=== PATIENT | male | born 1965 | race Caucasian/White ===

== ENCOUNTER 2020-07-09 15:25 | Outpatient (CLI) | payer BC, SELFPAY ==
--- NOTE | ~2020-07-09 | XR_ITS ---
XR lumbar spine min 4V 07/09/2020 16:39 Indication: Back pain Procedure: 5 views of the lumbar spine Comparison: No prior studies for comparison. Findings: There is disc narrowing at all lumbar levels. There is moderate facet hypertrophy at L3-4, L4-5 and L5-S1. There is grade 1 degenerative spondylolisthesis at L4-5. No fracture or traumatic no alteration of alignment with flexion/extension views. Impression: 1: Moderate lumbar spondylosis. Reviewed, dictated and finalized at location A. Impression: 1: Moderate lumbar spondylosis.
== END 2020-07-09 15:26 ==
DX: M47.896 Other spondylosis, lumbar region (principal)
CPT/HCPCS: 72110

== ENCOUNTER 2020-08-25 06:58 | Outpatient (CLI) | payer BC, SELFPAY ==
--- NOTE | ~2020-08-25 | MR_ITS ---
EXAMINATION: MR lumbar spine wo con DATE: 08/25/2020 08:00 INDICATION: Left-sided sciatica. TECHNIQUE: Magnetic resonance imaging (MRI) of the lumbar spine was performed without intravenous con trast. Sequences included sagittal T2-weighted FSE, sagittal T2-weighted FS FSE, sagittal T1-weighted FSE, and axial T2-weighted FSE. COMPARISON: Lumbar spine radiograph 07/09/2020 FINDINGS: There is 4 degrees dextrocurvature of thoracolumbar spine. There is 3 mm retrolisthesis of L2 on L3 and L3 on L4, 4 mm anterolisthesis of L4 on L5, and 3 mm retrolisthesis of L5 on S1. Vertebr al body heights are normal. There is mildly decreased disc height at L1-L2 and L2-L3, moderately decr eased disc height at L3-L4, mildly decreased disc height at L4-L5, and severely decreased disc height at L5-S1. The distal spinal cord signal intensity is normal. The conus medullaris is at L1. Epidural lipomatosis is noted. The following disc levels are specifically discussed: L1-L2: The disc is bulging and has an annular fissure. There is mild bilateral facet joint osteoarthr itis. There is mild bilateral neural foraminal stenosis. There is mild central canal stenosis. L2-L3: The disc is bulging with superimposed right central extrusion. There is moderate bilateral fac et joint osteoarthritis. There is mild bilateral neural foraminal stenosis. There is mild central can al stenosis. L3-L4: The disc is bulging and has an annular fissure. There is severe bilateral facet joint osteoart hritis. There is moderate bilateral neural foraminal stenosis. There is moderate central canal stenos is. L4-L5: The disc is bulging. There is severe bilateral facet joint osteoarthritis. There is moderate b ilateral neural foraminal stenosis. There is mild central canal stenosis. L5-S1: The disc is bulging and has an annular fissure. There is severe bilateral facet joint osteoart hritis. There is moderate bilateral neural foraminal stenosis. There is mild central canal stenosis. IMPRESSION: 1. Severe lumbar spondylosis. Reviewed, dictated and finalized at location A.
== END 2020-08-25 06:59 | disposition home or self-care (01) ==
LOC: ANHIMG 07:13
PROVIDERS: PCP Internal Medicine
DX: M54.32 Sciatica, left side (principal); M47.816 Spondylosis without myelopathy or radiculopathy, lumbar region
CPT/HCPCS: 72148

== ENCOUNTER 2024-12-22 09:42 | Outpatient (CLI) | payer OTHER, SELFPAY ==
--- NOTE | ~2024-12-22 | MR_ITS ---
EXAMINATION: MR lumbar spine wo con DATE: 12/22/2024 10:35 INDICATION: Dorsalgia, unspecified. TECHNIQUE: Magnetic resonance imaging (MRI) of the lumbar spine was performed without intravenous con trast. Sequences included sagittal T2-weighted FSE, sagittal T2-weighted FS FSE, sagittal T1-weighted FSE, and axial T2-weighted FSE. COMPARISON: Lumbar spine MRI 08/25/2020 FINDINGS: There is 3 mm retrolisthesis of L1 on L2, L2 on L3, and L3 on L4 and 5 mm anterolisthesis o f L4 on L5. There is mild chronic anterior wedging of T12 and L1 vertebral bodies. There is moderatel y decreased disc height from L1-L2 through L4-L5 and severely decreased disc height at L5-S1. Epidura l lipomatosis is noted. The distal spinal cord signal intensity is normal. The conus medullaris is at L1. The following disc levels are specifically discussed: L1-L2: The disc is bulging. There is mild right and moderate left facet joint osteoarthritis. There i s mild bilateral neural foraminal stenosis. There is mild central canal stenosis. L2-L3: The disc is bulging and has an annular fissure. There is severe bilateral facet joint osteoart hritis. There is mild bilateral neural foraminal stenosis. There is mild central canal stenosis. L3-L4: The disc is bulging and has an annular fissure. There is moderate right and severe left facet joint osteoarthritis. There is moderate bilateral neural foraminal stenosis. There is mild central ca nal stenosis. L4-L5: The disc does not extend beyond the endplate margin. There is severe bilateral facet joint ost eoarthritis. There is moderate right and mild left neural foraminal stenosis. There is mild central c anal stenosis. L5-S1: The disc is bulging and has an annular fissure. There is severe bilateral facet joint osteoart hritis. There is moderate bilateral neural foraminal stenosis. There is mild central canal stenosis. IMPRESSION: 1. Severe lumbar spondylosis, stable from 08/25/2020. Reviewed, dictated and finalized at location A. [facility]
--- OUTSIDE RECORDS SUMMARY | 2024-12-22 10:23 | XMS_ITS | Continuity of Care Document ---
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 It does not include entries that were removed or entered in error. Problem Status Onset Date Problem Type Date of Resolution Comments Source tooth pain Active Condition DoD visit for: ears / hearing exam Active Condition DoD visit for: services physical Inactive Condition DoD Patient Counseling: Inactive Condition D oD hyperlipidemia Active Condition Alexey murphyine hyperlipidemia ; pt will moderate diet, increase aerobic activity. He has quit smoking in past month. Pt will follow up in 3 months. DoD Immunizations Combined list of available immunizations from the Department of Defense and Veterans Affairs facilities. Immunization Series Date Given Administered By Site Reaction Lot Number CVX Code Drug Incident Response Engineer Status Comments Source hepatitis B vaccine, adult dosage 2 2009 [id number] Unknown (UNK) complet ed hepatitis B vaccine, adult dosage DoD hepatitis A vaccine, adult dosage 2 2009 [id number] Unknown (UNK) complet ed hepatitis A vaccine, adult dosage DoD influenza virus vaccine, split virus (incl. purified surface antigen)-reti red CODE 1 2008 [id number] 15 Unknown (UNK) complet ed influenza virus vaccine, split virus (incl. purified surface antigen)- retired CODE DoD hepatitis B vaccine, adult dosage 1 2007 [id number] 43 Unknown (UNK) comple t ed hepatitis B vaccine, adult dosage DoD hepatitis A vaccine, adult dosage 1 2007 [id number] 52 Unknown (UNK) comple t ed hepatitis A vaccine, adult dosage DoD influenza virus vaccine, live, attenuated, for intranasal use 1 2006 [id number] [email or web address] (MED) complet ed influenza virus vaccine, live, attenuate d, for intranasa l use DoD measles, mumps and rubella virus vaccine 1 2006 [id number] 03 Unknown (UNK) Not Given measles, mumps and rubella virus vaccine DoD tetanus and diphtheria toxoids, adsorbed, preservative free, for adult use (2 Lf of tetanus toxoid and 2 Lf of diphtheria toxoid) 1 2006 [id number] [employer] ([facility]) complet ed tetanus and diphtheri a toxoids, adsorbed, preservat joselin free, for adult use (2 Lf of tetanus toxoid and 2 Lf of diphtheri a toxoid) DoD poliovirus vaccine, inactivated 1 2006 [id number] [employer] (B) complet ed polioviru s vaccine, inactivat ed DoD influenza virus vaccine, split virus (incl. purified surface antigen)-reti red CODE 1 2006 [id number] 15 Unknown (UNK) comple t ed influenza virus vaccine, split virus (incl. purified surface antigen)- retired CODE DoD varicella virus vaccine 1 2006 [id number] 21 Unknown (UNK) Not Given varicella virus vaccine DoD meningococcal polysaccharid e (groups A, C, Y and W-135) diphtheria toxoid conjugate vaccine (MCV4P) 1 2006 [id number] 114 Unknown (UNK) comple t ed meningoco ccal polysacch aride (groups A, C, Y and W-135) diphtheri a toxoid conjugate vaccine (MCV4P) DoD Encounters Combined list of: 1) Encounters from Department of Veterans Affairs facilities going backup to the last 18 months, not all VA inpatient encounters are included; 2) Encounters from the Department of Defense facilities going backup to 280 months. Location Location Details Encounter Type Encounter Number Reason For Visit Attending Provider ADM Date DC Date Status Disposition Source [facility] [place] [place]) OUTPATIENT [id number] Profile KEVYN VILA 02/14 Released w/o Limitations [facility] [place] [place] [place] [place] [place] [facility]) OUTPATIENT [id number] [facility] RICKEY OLVERA 02/18 Released w/o Limitations [facility] [place] [place] [place] [facility] [place]) TELE CONSULT [phone] on-call PEGGY Bah 04/[address] [facility] [place]) Procedures Combined list of: 1) Procedures from Department of Veterans Affairs facilities going back up to thelast 18 months, not all VA non-surgical procedures are included; 2) All procedures from the Department of Defense facilities. Procedure Procedure Type Code Date Perfomer Comments Sour e PATIENT EDUCATION, NOT OTHERWISE CLASSIFIED, NON-PHYSICIAN PROVIDER, GROUP, PER SESSION 02/18/2007 [facility] INFLUENZA VIRUS VACCINE, TRIVALENT (IIV3), SPLIT VIRUS, 0.5 ML DOSAGE, FOR INTRAMUSCULAR USE 02/14/2007 [facility] SCREENING TEST OF VISUAL ACUITY, QUANTITATIVE, BILATERAL 02/13/2007 [facility] Ear Protector Attenuation Measurements Ear Protector Attenuation Measurements [id number] 02/18/2007 [facility] Audiometry Group Testing Audiometry Group Testing [id number] 02/18/2007 AYAZ LOPEZ [facility] Patient education, not otherwise cla ified, non-physician provider, group, per se ion 02/18/2007 AYAZ LOPEZ Do[facility] Social History Combined list of available smoking, tobacco, and other social history from Department of Defense and Veterans Affairs facilities. Social History Type Response Date Comment Sour e This section is an empty social history section. [facility]D
--- OUTSIDE RECORDS SUMMARY | 2024-12-22 10:23 | XMS_ITS | Data Portability ---
Author Organization [facility], Main Office Address [address] [place] [address] Assessment No assessment recorded. Plan of Treatment Reminders Order Date Submit Date Provider Last Modified By Organization Details Last Modified Time Details Appointments None recorded. Lab CMP, serum or plasma [address] (Lab), [address] [place], [address], 4 08:51:46 lipid panel, serum [address] (Lab), [address] [place], [address], 4 08:51:46 TSH, serum or plasma [address] (Lab), [address] [place], [address], 4 08:51:46 urinalysis, complete [address] (Lab), [address] [place], [address], 4 08:51:46 PSA, total, serum or plasma [address] (Lab), [address] [place], [address], 4 07:58:07 CMP, serum or plasma [address] (Lab), [address] [place], [address], 4 07:58:07 lipid panel, serum [address] (Lab), [address] [place], [address], 4 07:58:07 CBC w/ auto diff [address] (Lab), [address] [place], [address], 4 07:58:07 [email or web address] obin, total, blood 2023 024 [email or web address] [facility] (Lab), [address] [place], [address], 4 07:48:26 PSA, serum or plasma [address] (Lab), [address] [place], [address], 4 08:37:14 CMP, serum or plasma [address] (Lab), [address] [place], [address], 4 08:37:14 lipid panel, serum [address] (Lab), [address] [place], [address], 4 08:37:14 Referral None recorded. Procedures colonoscopy screening (PROC) 2023 024 [place] [address] Renetta Archer MD, [address] [facility], [address], [place], [address], 4 07:59:11 Surgeries None recorded. Imaging None recorded. Medication Orders escitalopra m 10 mg tablet 2022 023 [facility] [address]61, [address] [place] [address], [address], 3 12:10:19 escitalopra m 10 mg tablet 2022 023 [facility] [address], [address] [place] [address], [address], 3 11:55:14 tadalafil 20 mg tablet 2023 024 [facility] [address], [address] [place] [address], [address], 4 12:40:53 lisinopril 10 mg tablet 2023 024 [email or web address] [facility] [address], [address] [place] [address], [address], 4 12:15:29 valacyclovi r 1 gram tablet 2023 024 [email or web address] [place] [address], [address] [place] [address], [address], 4 11:58:46 lisinopril 20 mg-hydrochl orothiazide 25 mg tablet 2023 024 [facility] [address], [address] [place] [address], [address], 4 12:13:47 Patient TargetsNo targets recorded. Patient InstructionsNo instructions recorded. Reason for Referral None Reported. Problems Name Problem SNOMED Code Status Onset Date Resolution Date Notes Provider Name and Address Organization Details Recorded Time Essential hypertensi on 94834989 Active 2022 Eliu Gee MD [address] [place] [address], [facility] [address], [place], [address] , [facility] [employer] [facility] [email or web address] [facility] 3 14:21:49 Herpes zoster 9853319 Completed 202201/01/2024 Eliu Gee MD [address] [facility], [facility] [address], [place], [address] , [facility] 4 16:29:36 Tinea cruris 819696264 Completed 202201/01/2024 RACHEL [place], [place] [employer] [facility] 4 12:06:53 Respirator y tract congestion and cough 851855014 Completed 202301/01/2024 RACHEL [place], [place] [employer] [facility] [email or web address] [facility] 4 12:06:46 Herpes zoster 1186084 Active 2023 Eliu Gee MD [address] [facility], [facility] [address], [place], [address] , [facility] [employer] [facility] 4 16:29:36 Chronic back pain 515320612 Active 2020 Not Available [facility] 3 04:50:38 Backache 059542549 Completed Not Available [facility] 3 04:50:38 Liver function tests outside reference range 066396973 Active 2019 Not Available [facility] 3 04:50:38 Adult health examinatio n Active 2021 Not Available [facility] 3 04:50:38 Screening for malignant neoplasm of colon Completed 202107/21/2022 Not Available [facility] 3 04:50:38 Screening for malignant neoplasm of prostate Completed 202107/21/2022 Not Available [facility] 3 04:50:38 Shoulder pain 27622069 Completed Not Available [facility] 3 04:50:39 Anxiety 82466426 Active 2020 Not Available [facility] 3 04:50:39 Hyperlipid emia 86967506 Active 2019 Not Available [facility] 3 04:50:39 Hyperglyce piter 66813523 Active 2019 Not Available [facility] 3 04:50:39 Erectile dysfunctio n 095112690 Active 2021 Lia alaniz, RMiJmi null, [place] [facility] [place] [employer] [facility] 3 14:10:19 Problem Notes None recorded. Procedures Surgical History Date Name Laterality Status Provider Name and Address Organization Details Recorded Time Hernia Repair completed Not Available [facility] 01/10/2023 04:42:13 Imaging Results None recorded. Procedure Notes None recorded. Medical Equipment None Reported. Allergies No known drug allergies Medications Name Sig Start Date Stop Date Status Note LastModified by Organization Details LastModified Time cyclobenz aprine 10 mg tablet TAKE 1 TABLET BY MOUTH THREE TIMES DAILY NEEDED 04/23 completed Not Available Not Available Not Available prednison e 10 mg tablet 3 tabs for 3 days, 2 tabs for 3 days, 1 tab for 3 days active Not Available Not Available No t Available benzonata te 200 mg capsule TAKE 1 CAPSULE BY MOUTH THREE TIMES DAILY FOR 7 DAYS 01/01 completed Not Available Not Available Not Available valacyclo vir 1 gram tablet TAKE 1 TABLET BY MOUTH THREE TIMES DAILY active for Shingles Not Available Not Available Not Available hydrocodo ne 5 mg-acetam inophen 325 mg tablet 01/31 completed Not Available Not Available Not Available penicilli n V potassium 500 mg tablet active Not Available Not Available Not Available sulfameth oxazole 800 mg-trimet hoprim 160 mg tablet Take 1 tablet every 12 hours by oral route for 14 days. active Not Available Not Available No t Available hydrocodo ne 10 mg-acetam inophen 325 mg tablet TAKE 1 TABLET BY MOUTH EVERY 4 TO 6 HOURS NEEDED FOR PAIN . DO NOT EXCEED 4 PER 24 HOURS active Not Available Not Available No t Available tramadol 50 mg tablet TAKE 1 TABLET BY MOUTH TWICE DAILY NEEDED 01/17 completed Not Available Not Available Not Available sildenafi l 100 mg tablet Take 1 tablet every day by oral route as needed. 10/03 completed Not Available Not Available Not Available terbinafi ne HCl 250 mg tablet Take 1 tablet every day by oral route. 09/13 completed Not Available Not Available Not Available amoxicill in 875 mg tablet TAKE 1 TABLET BY MOUTH EVERY 12 HOURS 10/06 completed Not Available Not Available Not Available triamcino lone acetonide 0.025 % topical cream APPLY THIN LAYER CREAM TO AFFECTED AREA 2-3 TIMES A DAY NEEDED FOR ITCHING /INFLAMA TION. 01/01 completed Not Available Not Available Not Available cephalexi n 500 mg capsule 12/03 completed Not Available Not Available Not Available simvastat in 20 mg tablet TAKE 1 TABLET BY MOUTH ONCE DAILY active Not Available Not Available No t Available nystatin 100,000 unit/gram topical cream APPLY CREAM TOPICALL Y TO AFFECTED AREA TWICE DAILY 01/01 completed Not Available Not Available Not Available dexametha sone 4 mg tablet TAKE 2 TABS BY MOUTH ON DAY OF SURGERY. TAKE 2 TABS DAY AFTER SURGERY, AND THEN TAKE 1 TAB ON 2ND DAY AFTER SURGERY 04/30 completed Not Available Not Available Not Available buspirone 10 mg tablet Take 1 tablet by mouth twice daily as needed 10/12 completed Not Available Not Available Not Available lisinopri l 10 mg tablet Take 1 tablet by mouth once daily 2023 active O[facility] 04/30/24 ok to rf Not Available Not Available Not Available orphenadr ine citrate ER 100 mg tablet,ex tended release 12/03 completed Not Available Not Available Not Available lisinopri l 20 mg-hydroc hlorothia zide 25 mg tablet TAKE 1 TABLET BY MOUTH ONCE DAILY active Not Available Not Available No t Available ibuprofen 600 mg tablet TAKE 1 TABLET BY MOUTH EVERY 6 TO 8 HOURS NEEDED 04/30 completed Not Available Not Available Not Available clotrimaz ole 1 % topical cream APPLY TO THE AFFECTED AND SURROUND ING AREAS OF SKIN BY TOPICAL ROUTE 2 TIMES PER DAY IN THE MORNING AND EVENING 09/13 completed Not Available Not Available Not Available naproxen 500 mg tablet Take 1 tablet twice a day by oral route with meals. 12/03 completed Not Available Not Available Not Available amoxicill in 875 mg-potass ium clavulana te 125 mg tablet TAKE 1 TABLET BY MOUTH EVERY 12 HOURS FOR 7 DAYS 01/01 completed Not Available Not Available Not Available escitalop erick 10 mg tablet Take 1 tablet by mouth once daily active Not Available Not Available No t Available cyclobenz aprine 5 mg tablet Take 1 tablet 3 times a day by oral route. active Not Available Not Available No t Available tadalafil 20 mg tablet Take 1 tablet by mouth once daily active Not Available Not Available No t Available [place] 3 QD 2019 active Not Available Not Available Not Avai lable Multi Vitamin QD 2019 active Not Available Not Available Not Avai lable Vitals Date Recorded Body height Body mass index (BMI) Body weight Body temperature Heart rate Oxygen saturation Oxygen saturation in Arterial blood by Pulse oximetry Systolic blood pressure Diastolic blood pressure Provider Name and Address Organization Details Last Updated DateTime 3 180.34 cm 25.9 kg/m2 52424.1 8 g 97.3 [degF] 83 /min 97 % 97 % 140 mm[Hg] 80 mm[Hg] Bob Ramírez [facility] 3 11:39:04 Date Recorded Body height Body mass index (BMI) Body weight Body temperature Heart rate Oxygen saturation Oxygen saturation in Arterial blood by Pulse oximetry Systolic blood pressure Diastolic blood pressure Provider Name and Address Organization Details Last Updated DateTime 3 180.34 cm 27.6 kg/m2 77383.2 9 g 97.5 [degF] 74 /min 96 % 96 % 154 mm[Hg] 90 mm[Hg] Lia mosqueda Jimi [employer] [facility] 3 11:44:34 Date Recorded Body height Body mass index (BMI) Body weight Body temperature Heart rate Oxygen saturation Oxygen saturation in Arterial blood by Pulse oximetry Systolic blood pressure Diastolic blood pressure Provider Name and Address Organization Details Last Updated DateTime 4 180.34 cm 26.5 kg/m2 08473.5 5 g 98.1 [degF] 88 /min 99 % 99 % 142 mm[Hg] 84 mm[Hg] Bob Ramírez [facility] [employer] 4 12:01:35 Date Recorded Body height Body mass index (BMI) Body weight Body temperature Heart rate Oxygen saturation Oxygen saturation in Arterial blood by Pulse oximetry Systolic blood pressure Diastolic blood pressure Provider Name and Address Organization Details Last Updated DateTime 4 180.34 cm 26.6 kg/m2 72916.1 4 g 98.5 [degF] 78 /min 96 % 96 % 162 mm[Hg] 90 mm[Hg] Sada walter C[facility] [place] [facility] 4 16:19:54 Date Recorded Body height Body mass index (BMI) Body weight Body temperature Heart rate Respiratory rate Oxygen saturation Oxygen saturation in Arterial blood by Pulse oximetry Systolic blood pressure Diastolic blood pressure Provider Name and Address Organization Details Last Updated DateTime 4 180.34 cm 25.2 kg/m2 49806.2 2 g 97.2 [degF] 72 /min 16 /min 97 % 97 % 172 mm[Hg] 92 mm[Hg] Nikkie Tony MA [facility] 4 11:52:03 Social History Question Answer Notes LastModified by Organizat ion Details LastModified Time Tobacco Smoking Status Former Smoker 2014 Not Available [facility] 01/10/2023 04:31:07 What Is Your Level Of Alcohol Consumption? Moderate [id number] Information not available 01/10/2023 What Is Your Level Of Caffeine Consumption? Moderate [id number] Information not available 01/10/2023 In The 14 Days Before Symptom Onset, Have You Had Close Contact With A Laboratory-confirm ed COVID-19 While That Case Was Ill? No [id number] Information not available 01/10/2023 In The 14 Days Before Symptom Onset, Have You Had Close Contact With A Person Who Is Under Investigation For COVID-19 While That Person Was Ill? 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 6 [id number] Information not available 01/10/2023 How Much Tobacco Do You Smoke? 0.5 PPD [id number] Information not available 01/10/2023 Sex: Unknown Functional Status None recorded. Mental Status None recorded. Family History Relationship Description Onset Age of this Age Resolved Age Notes LastModified by Organization Details LastModified Time Father Malignant neoplastic disease [id number] Not available 01/10/2023 04:42:18 Medical History No medical history recorded. Immunizations Vaccine Type Date Status Note Provider Nam e and Address Organization Details Recorded Time Influenza, split virus, quadrivalent, PF 09/13/2023 completed RACHEL H[place], [place] [employer] [facility] 09/13/2023 17:30:45 Past Encounters Encounter ID Performer Location Encounter Start Date Encounter Closed Date Diagnosis/Indication Diagnosis SNOMED-CT Code Diagnosis ICD10 Code Diagnosis Note [id number] [facility] Internal [place] [id number] [facility] [place] [address] 01/17/2022 00:00:00 01/17/2022 15:28:[id number] [address] 08/09/2022 00:00:00 08/09/2022 14:37:10 [id number] Eliu Gee MD [address] [address] 04/23/2023 14:01:01 04/23/2023 14:27:11 Hyperglycemia 08434358 R73.9 advised to watch diet, needs labs once get insurance in Jun Hyperlipidemia 33728485 E78.5 watch diet, labs Anxiety 47873421 F41.9 ^ the dose Chronic back pain 027146 002 G89.29 better Erectile dysfunction 860 981960 F52.21 meds help Adult heal th examination 718175611 Z00.00 Colonoscop y - never had, was ordered, wants to wait Essential hypertension 10883362 I10 watch diet, meds if needed Herpes zoster 3903483 B0 2.9 [id number] Eliu Gee MD [facility] Internal [facility] [address] [place] [address] 08/08/2023 11:37:26 08/08/2023 12:24:44 Tinea cruris 200528095 B35.6 Hyperlipidemia 45634614 E78.5 watch diet, keep taking simvastati n [id number] Eliu Gee MD [facility] Internal [facility] [address] [place] [address] 09/13/2023 11:32:29 09/13/2023 12:07:09 Administration of influenza vaccine 10205886 Z23 Anxiety 86717833 F41.9 start on escitalopr am [id number] Eliu Gee MD [facility] Internal [address] [place] [address] 10/12/2023 11:35:18 10/15/2023 09:57:24 Anxiety 57247331 F41.9 start on escitalopr am Essential hypertension 91120325 I10 watch diet, meds if needed [id number] Eliu Gee MD [facility] Internal [address] [place] [address] 01/01/2024 11:45:58 01/01/2024 12:45:23 Anxiety 04708863 F41.9 on escitalopr am Essential hypertension 46078839 I10 start meds Erectile dysfunction 860 214944 F52.21 meds help Adult [facility] examination 509130322 Z00.00 Colonoscop y - never had, was ordered, wants to waitFLU- 3PSA- ORDEREDCOV ID- Has only had 2 injections Screening for malignant neoplasm of prostate 614793905 Z12.5 Screening for malignant neoplasm of colon 441453442 Z12.11 [id number] Eliu Gee MD [facility] Internal [address] [facility] [place] [address] 01/28/2024 16:14:18 01/28/2024 16:32:59 Herpes zoster 2556326 B02.9 to get the shigrex shot once rash improves [id number] Eliu Gee MD [facility] Internal Med [facility] [address] [facility] [place] [address] 04/30/2024 11:29:55 04/30/2024 12:17:00 Anxiety 02153160 F41.9 better Essential hypertension 71997830 I10 adjust meds Erectile dysfunction 860 195936 F52.21 meds help Adult [facility] examination 681088757 Z00.00 Colonoscop y - never had, was ordered, wants to waitFLU- 3PSA- ORDEREDCOV ID- Has only had 2 injections Screening for malignant neoplasm of prostate 408038608 Z12.5 Hyperglycemia 66577091 R 73.9 advised to watch diet, needs labs once get insurance in Jun Liver func tion tests outside reference range 861234317 R94.5 labs Chronic back pain 713088 002 G89.29 better Health Concerns Section Related Observation LastModified by Organization Detai ls LastModified Time None Recorded Concern Status LastModified by Organization Details LastModified Time None Recorded Advance Directives Directive None Recorded Payers Encounter Date Sequence Insurance Name Policy Number Policy Roa Covered Member ID Roa Member ID Guarantor Name 09/13/2023 1 [place] Kervin Abreu [id number] Kervin Abreu 09/13/2023 2 [facility] (MEDICARE REPLACEMENT/AD VANTAGE - HMO) [id number] Kervin Abreu [id number] Kervin Abreu 10/12/2023 1 [place] Kervin Abreu [id number] Kervin Abreu 10/12/2023 2 [facility] (MEDICARE REPLACEMENT/AD VANTAGE - HMO) [id number] Kervin Abreu [id number] Kervin Abreu 01/01/2024 1 [place] Kervin Abreu [id number] Kervin Abreu 01/01/2024 1 [facility] (MEDICARE REPLACEMENT HMO) [id number] Kervin Abreu [id number] Kervin Abreu 01/28/2024 1 [place] Kervin Abreu [id number] Kervin Abreu 01/28/2024 1 [facility] (MEDICARE REPLACEMENT HMO) [id number] Kervin Abreu [id number] Kervin Abreu 04/30/2024 1 *SELF PAY* Nathalia Abreu Notes Date Note Type Note Provider Name and Address Organization Details Recorded Time 3 text/html Pt is requesting a change of medication, states Buspirone is not working.no symptoms of depressionHe went through a divorce this summersleep not goodgood appetiteirritableon disabilityno drugs , some alcohol some times Eliu Gee MD [address] [facility], [facility] [address], [place], [address], [place] [facility] 09/13/2023 13:17:45 3 text/html Pt is here today for a 1 month follow up on anxietyHe was started on escitalopram last month and states that it has been helping.No longer takes Buspirone- ineffectiveBlood pressure today is 154/90Sleeps fine LAST NOTEPt is requesting a change of medication, states Buspirone is not working.no symptoms of depressionHe went through a divorce this summersleep not goodgood appetiteirritableon disabilityno drugs , some alcohol some times Eliu Gee MD [address], [facility] [address], [place], [address], [facility] 10/12/2023 11:56:51 4 text/html Pt is here today for a routine follow up Anxiety- on escitalopram last month and has been helping.No longer takes Buspirone- ineffectiveBlood pressure today is highSleeps fine Hyperlipidemia- on meds, labs dueMeds- Simvastatin 20mg daily, [place] 3 ED- On meds, helpMeds- Tadalafil 20mg daily as needed HTN- better but still high Eliu Gee MD [address], [address], [place], [address], [facility] 01/01/2024 12:43:16 4 text/html Patient is a 58 y/o male with c/o shingles on his back side for 3 days. He states he had them about 6 mos ago. Also, he is requesting a referral to see someone for his back pain which is affecting his walking.He gets recurrent herpes zoster on the lower back. Pain and itchingno fever Eliu Gee MD [address], [address], [place], [address], [facility] 01/28/2024 16:32:36 4 text/html Pt is here today for a routine follow upPT IS NOT FASTING Never did the labs that were ordered back in Nov or the Colonoscopy Anxiety- on escitalopram and has been helping.No longer takes Buspirone- ineffectiveBlood pressure today is highSleeps fine Hyperlipidemia- on meds, labs due, discussed againMeds- Simvastatin 20mg daily, [place] 3 ED- On meds, helpMeds- Tadalafil 20mg daily as needed HTN- B/p today is high, 172/92. Pt had all his lower teeth pulled 1 week ago and has not had any pain med, Has taken all ABX Eliu Gee MD [address] [place] [address], [facility] [address], [place], [address], [facility] [employer] 04/30/2024 12:18:10
--- OUTSIDE RECORDS SUMMARY | 2024-12-22 10:23 | XMS_ITS | Patient Health Record ---
Author Organization [facility] Physician Aaron dobson Billing Info Address [address] [place] [address] Support Name Relationship Address Phone BradyKervin Guarantor Unknown [phone] Reason For Referral No Information Plan Of Treatment No Information Insurance Providers Payer Name Payer Address Payer Phone Subscriber Number Group Number Insured Name Patient Relationship to Insured Coverage Start Date Coverage End Date [facility] HMO/POS [address] [place], [place] [id number] [phone] [id number] BradyKervin Self - patient is the insured 0 0
== END 2024-12-22 09:43 | disposition home or self-care (01) ==
PROVIDERS: PCP Emergency Medicine; Visit Provider Emergency Medicine
DX: M47.816 Spondylosis without myelopathy or radiculopathy, lumbar region (principal); M54.9 Dorsalgia, unspecified; G89.29 Other chronic pain
CPT/HCPCS: 72148

== ENCOUNTER 2025-07-15 11:39 | Outpatient (CLI) | payer OTHER, MEDICARE, SELFPAY ==
[2025-07-15 12:03] LABS: Hematocrit 44.2 % (42.0-52.0); Hemoglobin 15.4 g/dL (14.0-18.0); Mean Corpuscular HGB Conc 34.8 g/dl (32-36); Mean Corpuscular Hemoglobin 32.5 pg (26-34); Mean Corpuscular Volume 93.2 fl (80-100); Platelet Count Result 210 k/mm3 (150-375); Red Blood Count 4.74 M/mm3 (4.6-6.20); White Blood Count 7.7 K/mm3 (4.5-10.0)
[2025-07-15 12:23] LABS: Alanine Aminotransferase 62 U/L (6-50); Albumin Level 4.4 g/dL (3.5-5.1); Alkaline Phosphatase 110 U/L (38-126); Anion Gap 8 mmol/L (4-12); Aspartate Amino Transferase 78 U/L (17-59); Bilirubin,Total 0.6 mg/dL (0.2-1.3); Blood Urea Nitrogen 12 mg/dL (9-20); Calcium 9.3 mg/dL (8.4-10.2); Carbon Dioxide 25 mmol/L (22-30); Chloride 104 mmol/L (98-107); Cholesterol 227 mg/dL (0-200); Estimated Glomerular Filt Rate > 60; Glucose 132 mg/dL (65-110); HDL Direct 44 mg/dL; Potassium 4.0 mmol/L (3.4-5.0); Sodium 137 mmol/L (137-145); Total Protein 8.1 g/dL (6.3-8.2); Triglycerides 103 mg/dL (<150)
[2025-07-15 12:59] LABS: Prostate Specific Antigen 1.8 ng/mL (< OR = 4.0); Thyroid Stimulating Hormone 1.830 uIU/mL (0.465-4.680)
== END 2025-07-15 11:40 | disposition home or self-care (01) ==
LOC: ANHLAB 11:42
PROVIDERS: PCP Emergency Medicine; Visit Provider Emergency Medicine
DX: E78.5 Hyperlipidemia, unspecified (principal); E03.9 Hypothyroidism, unspecified; E55.9 Vitamin D deficiency, unspecified; R53.83 Other fatigue; Z12.5 Encounter for screening for malignant neoplasm of prostate
CPT/HCPCS: 36415; 80053; 80061; 82306; 84153; 84443; 85027; G0103

== ENCOUNTER 2025-07-30 09:59 | Outpatient (CLI) | payer OTHER, SELFPAY ==
--- NOTE | ~2025-07-30 | CT_ITS ---
EXAMINATION: [id number] DATE: 07/30/2025 10:43 INDICATION: Lumbar spondylosis. TECHNIQUE: Computed tomography (CT) of the lumbar spine was performed without intravenous contrast. Automated exposure control and iterative reconstruction technique were employed. The dose-length product was 564.77 mGy-cm. COMPARISON: Lumbar spine MRI 12/22/2024 FINDINGS: There is diffuse hepatic steatosis. There is 7 degrees dextrocurvature of thoracolumbar spine. There is 3 mm retrolisthesis of L2 on L3 and 5 mm anterolisthesis of L4 on L5. There is mild chronic anterior wedging of T11-L1 vertebral bodies. There is moderately decreased disc height at L1-L2, L2-L3, L3- L4, and L4-L5 and severely decreased disc height at L5-S1. 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 The following disc levels are specifically discussed: L1-L2: The disc is bulging. There is severe bilateral facet joint osteoarthritis. There is mild bilateral neural foraminal stenosis. There is mild central canal stenosis. L2-L3: The disc is bulging. There is severe bilateral facet joint osteoarthritis. There is moderate bilateral neural foraminal stenosis. There is mild central canal stenosis. L3-L4: The disc is bulging. There is severe bilateral facet joint osteoarthritis. There is moderate bilateral neural foraminal stenosis. There is moderate central canal stenosis. L4-L5: The disc is bulging. There is severe bilateral facet joint osteoarthritis. There is moderate bilateral neural foraminal stenosis. There is moderate central canal stenosis. L5-S1: The disc is bulging. There is severe bilateral facet joint osteoarthritis. There is moderate right and severe left neural foraminal stenosis. There is mild central canal stenosis. IMPRESSION: 1. Severe lumbar spondylosis. Reviewed, dictated and finalized at location E.
--- OUTSIDE RECORDS SUMMARY | 2025-07-30 10:37 | XMS_ITS | Patient Health Record ---
Author Organization [id number] [facility] Address [address] [facility] [address] [place], [place] [id number] Support Name Relationship Address Phone rBadyKervin Guarantor Unknown [phone] Reason For Referral No Information Plan Of Treatment No Information Insurance Providers Payer Name Payer Address Payer Phone Subscriber Number Group Number Insured Name Patient Relationship to Insured Coverage Start Date Coverage End Date [facility] HMO/POS [address] [place], [place] [id number] Brady Kervin Self - patient is the insured 0 0
== END 2025-07-30 10:00 | disposition home or self-care (01) ==
PROVIDERS: PCP Emergency Medicine; Visit Provider Neurological Surgery
DX: Z01.818 Encounter for other preprocedural examination (principal); M47.896 Other spondylosis, lumbar region
CPT/HCPCS: 72131

== ENCOUNTER 2025-07-31 10:02 | Outpatient (CLI) | payer OTHER, SELFPAY ==
--- OUTSIDE RECORDS SUMMARY | 2025-07-31 10:08 | XMS_ITS | Patient Health Record ---
Author Organization [id number] [facility] Address [address] [facility] [address] [place], [place] [phone] Support Name Relationship Address Phone BradyKervin Guarantor Unknown [phone] Reason For Referral No Information Plan Of Treatment No Information Insurance Providers Payer Name Payer Address Payer Phone Subscriber Number Group Number Insured Name Patient Relationship to Insured Coverage Start Date Coverage End Date VERN AGARWAL [facility] HMO/POS [address] [place], [place] [id number] Brady Kervin Self - patient is the insured 0 0
--- NOTE | 2025-07-31 10:48 | ECG_ITS ---
Test Date: 2025-07-31 11:09:58 Measurements Intervals [place] Rate: 80 P: 75 [place]: 194 QRS: 36 QRSD: 77 T: 21 QT: 356 QTc: 413 Interpretive Statements SINUS RHYTHM NONSPECIFIC T-WAVE ABNORMALITY ABNORMAL ECG WARNING: DATA QUALITY MAY AFFECT INTERPRETATION No previous ECG available for comparison Electronically Signed On 07-31-2025 13:06:04 CDT by Enoc Pinto M.D.
[2025-07-31 11:22] LABS: Add Urine Microscopic? YES; Appearance Urine Clear (Clear); Glucose Urine UA Negative (Negative); Leukocyte Esterase Ur Trace LEU/UL (Negative); Nitrate Urine Negative (Negative); Non Pathogenic Casts 0-2; Specific Grav Ur 1.011 (1.001-1.035)
[2025-07-31 11:29] LABS: INR 1.0; Prothrombin Time 13.3 Seconds (11.1-14.7)
[2025-07-31 11:30] LABS: Partial Thromboplastin Time 33.0 Seconds (22.3-36.8)
== END 2025-07-31 10:03 | disposition home or self-care (01) ==
LOC: ANHSURGERY 10:06
PROVIDERS: PCP Emergency Medicine; Visit Provider Neurological Surgery
DX: M43.16 Spondylolisthesis, lumbar region (principal); I10 Essential (primary) hypertension
CPT/HCPCS: 36415; 81001; 85610; 85730; 86850; 86900; 86901; 93005

== ENCOUNTER 2025-08-12 16:46 | Inpatient (IN) | payer OTHER, SELFPAY ==
--- NOTE | 2025-07-31 10:08 | PC.NURSE ---
[facility] has started construction of its new state of the art ER which will open Spring 2026. With this, we anticipate parking may be a challenge for some our surgical patients and families. Parking spaces are limited but are available for all Surgical, obstetrics, and ER patients sharing this lot. If you arrive and find you are having a hard time finding a parking space, please note that we understand the challenges, please drive around the hospital and park near Hospital Entrance 1. When you enter this entrance, you can ask a volunteer to direct or take you back to the surgical waiting area to check in. We appreciate everyone?s understanding of these expected challenges while we build for your future. Report to the Outpatient Waiting Room, entrance under the green pavilion located off [address], at time _6:30 AM on date _08/12/25 . Planned Procedure Time: __8:30 AM .? Time changes happen often and if your time is changed the preop area will call you the afternoon before. - You and your visitor will be asked to self-screen and do not enter if you have any COVID symptoms. Please call surgeon if you need to reschedule. - A mask is optional within the hospital at this time. Patients may have clear liquids (water, carbonated beverages, clear teas, apple juice) until 3 hours prior to surgery (5:30AM) with a maximum of 20 ounces. - No food from midnight until time of surgery and no smoking, or chewing tobacco (or any form of nicotine). No chewing gum, candy or mints. - Infants may have breast milk until 4 hours before surgery, formula 6 hours prior to surgery. - Children will be allowed to drink immediately following surgery.? If applicable, please bring a bottle or sippy cup to assist with drinking. Juice, water, soda, and popsicles are readily available.? For infants on formula, please bring formula the day of surgery.? Pacifiers are allowed. Take only the following medications with a SIP of water on the morning of surgery: _AMLODIPINE,ESCITALOPRAM DO NOT STOP ANY OF YOUR OTHER PRESCRIPTION MEDICATIONS PRIOR TO SURGERY EXCEPT THE FOLLOWING Hold all vitamins and supplements for 3 days per anesthesiologist.LAST DOSE 08/08/25 Medications to discontinue per physician HOLD IBUPROFEN 7 DAYS PRE OP PER DR CANO Date to take last dose 08/04/25 Please no make-up, nail indonesian, hairspray, perfume, deodorant, or body powder the day of surgery.? No jewelry (including any body piercings) or valuables the day of surgery, leave them at home.? Please take a shower or bath the night before, or the morning of, surgery with an antibacterial soap.? Wear comfortable, loose fitting clothing.? Children are encouraged to wear pajamas. - Jewelry must be removed prior to entering the operating room.? Rings and piercings that are not removed may be cut off. - The hospital will not accept responsibility for valuables.? - Please leave all valuables, including medications, at home the day of surgery. If you are going home after surgery, a licensed regional flatbed truck driver must drive you home.? - NO public transportation without another adult if you receive anesthesia. - We recommend that an adult stay with you for 24 hours following discharge. - We also recommend that you do not drive, make important decision, drink alcoholic beverages, or take any drugs that were not prescribed by your health care provider for at least 24 hours after your discharge time. For Pediatric surgeries, we recommend two adults accompany the child home. Follow any additional instructions given to you from your surgeon. VERBAL AND WRITTEN instructions given to _PATIENT and asked if any additional questions and then verbalized understanding. Patient advised to call surgeon office or pre surgery nurse liaison [phone] if any additional questions.
[2025-07-31 10:10] VITALS: BMI 27.3
[2025-07-31 10:50] VITALS: BP 145/86; PULSE 87; RESP 18; TEMP 37.1; O2SAT 98
[2025-08-12] VITALS (16 sets, daily range): BP systolic 125–176; BP diastolic 80–106; PULSE 80–97; RESP 12–18; TEMP 36.2–37.2; O2SAT 93–100; BMI 26.4
--- NOTE | ~2025-08-12 | XR_ITS ---
Examination: XR chest 2V Clinical History: Neurosurgery Comparison: None Technique: PA and Lateral Findings: Heart size mildly enlarged. Lungs clear. Mild hyperinflation No acute bony abnormality. IMPRESSION: 1. No acute cardiopulmonary findings. Reviewed, dictated and finalized at location R.
--- NOTE | ~2025-08-12 | XR_ITS ---
EXAMINATION: XR fluoroscopy no charge DATE: 08/12/2025 14:19 INDICATION: Transforaminal lumbar interbody fusion TECHNIQUE: 4 fluoroscopic images of the lumbar spine were obtained during procedure performed by Dr. Vanessa. Radiologist was not present for the imaging or procedure. The amount of fluoroscopy time used during this procedure was 0.3 minutes. Total DAP was 3.18 Gycm^2. COMPARISON: None. FINDINGS: [employer] images demonstrate moderate lumbar spondylosis with grade 1 anterolisthesis L4 on L5. Subsequent images demonstrate L4 and L5 laminectomies and instrumented L4-S1 posterior spinal fusion with bilateral vertical servando and pedicle screw fixation. There is also been an anterior spinal fusion at L5-S1 with interbody bone graft cage. IMPRESSION: 1. Fluoroscopy utilized during instrumented L4-S1 posterior spinal fusion and instrumented L5-S1 anterior spinal fusion. See procedure note for further detail. Reviewed, dictated and finalized at location A. IMPRESSION: 1. Fluoroscopy utilized during instrumented L4-S1 posterior spinal fusion and i nstrumented L5-S1 anterior spinal fusion. See procedure note for further detail .
--- OUTSIDE RECORDS SUMMARY | 2025-08-12 00:56 | XMS_ITS | Patient Health Record ---
Author Organization [id number] [facility] Address [address] [facility] [address] [place], [place] [id number] Support Name Relationship Address Phone BradyKervin Guarantor Unknown [phone] Reason For Referral No Information Plan Of Treatment No Information Insurance Providers Payer Name Payer Address Payer Phone Subscriber Number Group Number Insured Name Patient Relationship to Insured Coverage Start Date Coverage End Date VERN JOSEPH HMO/POS [address] [place], [place] [id number] [phone] [id number] Brady Kervin Self - patient is the insured 0 0
--- OUTSIDE RECORDS SUMMARY | 2025-08-12 00:56 | XMS_ITS | Data Portability ---
Author Organization [facility] [employer], Main Office Address [address] [place] [address] Assessment No assessment recorded. Plan of Treatment Reminders Order Date Submit Date Provider Last Modified By Organization Details Last Modified Time Details Appointments None recorded. Lab glycohemogl obin, total, blood 2023 024 [email or web address] [facility] (Lab), [address] [place], [address], 4 07:48:26 PSA, serum or plasma [address] (Lab), [address] [place], [address], 4 08:37:14 CMP, serum or plasma [address] (Lab), [address] [place], [address], 4 08:37:14 lipid panel, serum [address] (Lab), [address] [place], [address], 4 08:37:14 PSA, total, serum or plasma [address] (Lab), [address] [place], [address], 4 07:58:07 CMP, serum or plasma [address] (Lab), [address] [place], [address], 4 07:58:07 lipid panel, serum [address] (Lab), [address] [place], [address], 4 07:58:07 CBC w/ auto diff [address] (Lab), [address] [place], [address], 4 07:58:07 CMP, serum or plasma [address] (Lab), [address] [place], [address], 4 08:51:46 lipid panel, serum [address] (Lab), [address] [place], [address], 4 08:51:46 TSH, serum or plasma [address] (Lab), [address] [place], [address], 4 08:51:46 urinalysis, complete [address] (Lab), [address] [place], [address], 4 08:51:46 Referral None recorded. Procedures colonoscopy screening (PROC) 2023 024 [place] [address] Renetta Archer MD, [address], [place], [address], 4 07:59:11 Surgeries None recorded. Imaging None recorded. Medication Orders lisinopril 20 mg-hydrochl orothiazide 25 mg tablet 2023 024 [facility] [address], [address] [place] [address], [address], 4 12:13:47 valacyclovi r 1 gram tablet 2023 024 [email or web address] [facility] [address], [address] [place] [address], [address], 4 11:58:46 tadalafil 20 mg tablet [address] [facility] [address], [address] [place] [address], [address], 4 12:40:53 lisinopril 10 mg tablet 2023 0[address] [facility] [place] [address] Pharmacy [address], [address] [place] [address], [address], 4 12:15:29 escitalopra m 10 mg tablet [address] [facility] [address], [address] [place] [address], [address], 3 11:55:14 escitalopra m 10 mg tablet [address] [facility] [address], [address] [place] [address], [address], 3 12:10:19 Patient TargetsNo targets recorded. Patient InstructionsNo instructions recorded. Reason for Referral None Reported. Problems Name Problem SNOMED Code Status Onset Date Resolution Date Notes Provider Name and Address Organization Details Recorded Time Backache 555881095 Completed Not Available [facility] 3 04:50:38 Pain of shoulder region 65360884 Completed Not Available [facility] 3 04:50:39 Liver function tests outside reference range 584413636 Active 2019 Not Available [facility] 3 04:50:38 Hyperlipid emia 21011288 Active 2019 Not Available [facility] 3 04:50:39 Hyperglyce piter 18008730 Active 2019 Not Available [facility] 3 04:50:39 Chronic back pain 577607196 Active 2020 Not Available [facility] 3 04:50:38 Anxiety 25135070 Active 2020 Not Available [facility] 3 04:50:39 Adult health examinatio n Active 2021 Not Available [facility] 3 04:50:38 Screening for malignant neoplasm of colon Completed 202107/21/2022 Not Available [facility] 3 04:50:38 Screening for malignant neoplasm of prostate Completed 202107/21/2022 Not Available [facility] 3 04:50:38 Erectile dysfunctio n 235626625 Active 2021 RACHEL Allen, [employer] 3 14:10:19 Essential hypertensi on 38893635 Active 2022 Eliu Gee MD [address], [address], [place], [address] , [employer] 3 14:21:49 Herpes zoster 4916509 Completed 202201/01/2024 Eliu Gee MD [address], [address], [place], [address] , [employer] 4 16:29:36 Tinea cruris 527193434 Completed 202201/01/2024 RACHEL Allen, [employer] 4 12:06:53 Respirator y tract congestion and cough 580929988 Completed 202301/01/2024 Lia Paul n, RMA null, [facility] 4 12:06:46 Herpes zoster 2588892 Active 2023 Eliu Gee MD [address] [facility], [facility] [address], [place], [address] , [facility] [employer] 4 16:29:36 Problem Notes None recorded. Procedures Surgical History Date Name Laterality Status Provider Name and Address Organization Details Recorded Time Hernia Repair completed Not Available [facility] 01/10/2023 04:42:13 Imaging Results None recorded. Procedure [...] Not Available Not Available No t Available [place] 3 QD 2019 active Not Available Not Available Not Avai lable Multi Vitamin QD 2019 active Not Available Not Available Not Avai lable Vitals Date Recorded Body height Body mass index (BMI) Body weight Body temperature Heart rate Oxygen saturation Oxygen saturation in Arterial blood by Pulse oximetry Systolic And Diastolic Provider Name and Address Organization Details Last Updated DateTime 4 180.34 cm 26.5 kg/m2 39981.5 5 g 98.1 [degF] 88 /min 99 % 99 % 142/84 mm[Hg] Bob Ramírez [facility] [employer] [facility] 4 12:01:35 Date Recorded Body height Body mass index (BMI) Body weight Body temperature Heart rate Oxygen saturation Oxygen saturation in Arterial blood by Pulse oximetry Systolic And Diastolic Provider Name and Address Organization Details Last Updated DateTime 4 180.34 cm 26.6 kg/m2 40519.1 4 g 98.5 [degF] 78 /min 96 % 96 % 162/90 mm[Hg] Sada walter [facility] [employer] [facility] 4 16:19:54 Date Recorded Body height Body mass index (BMI) Body weight Body temperature Heart rate Respiratory rate Oxygen saturation Oxygen saturation in Arterial blood by Pulse oximetry Systolic And Diastolic Provider Name and Address Organization Details Last Updated DateTime 4 180.34 cm 25.2 kg/m2 31558.2 2 g 97.2 [degF] 72 /min 16 /min 97 % 97 % 172/92 mm[Hg] Nikkie Tony MA [facility] [employer] [facility] 4 11:52:03 Date Recorded Body height Body mass index (BMI) Body weight Body temperature Heart rate Oxygen saturation Oxygen saturation in Arterial blood by Pulse oximetry Systolic And Diastolic Provider Name and Address Organization Details Last Updated DateTime 3 180.34 cm 25.9 kg/m2 56987.1 8 g 97.3 [degF] 83 /min 97 % 97 % 140/80 mm[Hg] Bob Ramírez CMA [employer] 3 11:39:04 Date Recorded Body height Body mass index (BMI) Body weight Body temperature Heart rate Oxygen saturation Oxygen saturation in Arterial blood by Pulse oximetry Systolic And Diastolic Provider Name and Address Organization Details Last Updated DateTime 3 180.34 cm 27.6 kg/m2 84053.2 9 g 97.5 [degF] 74 /min 96 % 96 % 154/90 mm[Hg] Lia Braxton mosqueda RACHEL [employer] 3 11:44:34 Social History Question Answer Notes LastModified by [employer] Details LastModified Time Tobacco Smoking Status Former Smoker 2014 Not Available [facility] 01/10/2023 04:31:07 What Is Your Level Of Caffeine Consumption? Moderate [id number] Information not available 01/10/2023 In The 14 Days Before Symptom Onset, Have You Had Close Contact With A Laboratory-confirm ed COVID-19 While That Case Was Ill? No [id number] Information not available 01/10/2023 In The 14 Days Before Symptom Onset, Have You Had Close Contact With A Person Who Is Under Investigation For COVID-19 While That Person Was Ill? No [id number] Information not available 01/10/2023 At What Age Did You Start Smoking Tobacco? 6 [id number] Information not available 01/10/2023 How Much Tobacco Do You Smoke? 0.5 PPD [id number] Information not available 01/10/2023 Sex: Unknown Functional Status Question Answer Note LastModified by [employer] Details LastModified Time What is your level of alcohol consumption? 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 Family History Relationship Description Onset Age of this Age Resolved Age Notes LastModified by Organization Details LastModified Time Father Malignant neoplastic disease [id number] Not available 01/10/2023 04:42:18 Medical History No medical history recorded. Immunizations Vaccine Type Date Status Note Provider Nam e and Address Organization Details Recorded Time Influenza, split virus, quadrivalent, PF 09/13/2023 completed RACHEL Hickman [place] [employer] [facility] 09/13/2023 17:30:45 Past Encounters Encounter ID Performer Location Encounter Start Date Encounter Closed Date Diagnosis/Indication Diagnosis SNOMED-CT Code Diagnosis ICD10 Code Diagnosis IMO Codes Diagnosis Note [id number] Eliu Gee MD [facility] Internal [address] [place] [address] 01/17/2022 00:00:00 01/17/2022 15:28:45 [id number] Eliu Gee MD [facility] Internal [address] [address] 08/09/2022 00:00:00 08/09/2022 14:37:10 [id number] Eliu Gee MD [facility] Internal [address] [place] [address] 04/23/2023 14:01:01 04/23/2023 14:27:11 Hyperglycemia 69451979 R73.9 advised to watch diet, needs labs once get insurance in Jun Hyperlipidemia 07059258 E78.5 watch diet, labs Anxiety 92856315 F41.9 ^ the dose Chronic back pain 525661 002 G89.29 better Erectile dysfunction 860 328353 F52.21 meds help Adult heal th examination 269888585 Z00.00 Colonoscop y - never had, was ordered, wants to wait Essential hypertension 96482970 I10 watch diet, meds if needed Herpes zoster 5197517 B0 2.9 [id number] Eliu Gee MD [facility] [address] [place] [address] 08/08/2023 11:37:26 08/08/2023 12:24:44 Tinea cruris 011267378 B35.6 Hyperlipidemia 14615587 E78.5 watch diet, keep taking simvastati n [id number] Eliu Gee MD [facility] Internal Med [address] [place] [address] 09/13/2023 11:32:29 09/13/2023 12:07:09 Administration of influenza vaccine 42911163 Z23 Anxiety 35402566 F41.9 start on escitalopr am [id number] Eliu Gee MD [facility] Internal [address] [place] [address] 10/12/2023 11:35:18 10/15/2023 09:57:24 Anxiety 63105752 F41.9 start on escitalopr am Essential hypertension 32523539 I10 watch diet, meds if needed [id number] Eliu Gee MD [facility] Internal Med [facility] [address] [place] [address] 01/01/2024 11:45:58 01/01/2024 12:45:23 Anxiety 37384507 F41.9 on escitalopr am Essential hypertension 06829482 I10 start meds Erectile dysfunction 860 150193 F52.21 meds help Adult [facility] examination 193016290 Z00.00 Colonoscop y - never had, was ordered, wants to waitFLU- 3PSA- ORDEREDCOV ID- Has only had 2 injections Screening for malignant neoplasm of prostate 126613562 Z12.5 Screening for malignant neoplasm of colon 986346644 Z12.11 [id number] Eliu Gee MD [facility] Internal Med [facility] [address] [place] [address] 01/28/2024 16:14:18 01/28/2024 16:32:59 Herpes zoster 4116847 B02.9 to get the shigrex shot once rash improves [id number] Eliu Gee MD [facility] Med [facility] [address] [place] [address] 04/30/2024 11:29:55 04/30/2024 12:17:00 Anxiety 79073383 F41.9 better Essential hypertension 76128739 I10 adjust meds Erectile dysfunction 860 210132 F52.21 meds help Adult [facility] examination 421355636 Z00.00 Colonoscop y - never had, was ordered, wants to waitFLU- 3PSA- ORDEREDCOV ID- Has only had 2 injections Screening for malignant neoplasm of prostate 494854842 Z12.5 Hyperglycemia 23671902 R 73.9 advised to watch diet, needs labs once get insurance in Jun Liver func tion tests outside reference range 454366094 R94.5 labs Chronic back pain 427814 002 G89.29 better Health Concerns Section Related Observation LastModified by Organization Detai ls LastModified Time None Recorded Concern Status LastModified by Organization Details LastModified Time None Recorded Advance Directives Directive None Recorded Payers Insurance Date Sequence Insurance Name Policy Number Policy Roa Covered Member ID Roa Member ID Guarantor Name 04/30/2024 1 [facility] (MEDICARE REPLACEMENT HMO) [id number] Kervin Abreu [id number] Kervin Abreu 04/30/2024 1 *SELF PAY* Nathalia seph Bibiana Abreu 01/01/2024 2 [facility] (MEDICARE REPLACEMENT/AD VANTAGE - HMO) [id number] Kervin Abreu [id number] Kervin Abreu 04/30/2024 1 [place] Kervin Abreu [id number] Kervin Abreu 08/08/2023 1 *SELF PAY* Nathalia seph Bibiana Abreu Notes Date Note Type Note Provider Name and Address Organization Details Recorded Time 3 text/html ROS as noted in the HPI Pt is requesting a change of medication, states Buspirone is not working.no symptoms of depressionHe went through a divorce this summersleep not goodgood appetiteirritableon disabilityno drugs , some alcohol some times Eliu Gee MD [address], [place], [address], [facility] [employer] 09/13/2023 13:17:45 3 text/html ROS as noted in the HPI Pt is here today for a 1 [...] alcohol some times Eliu Gee MD [address], [place], [address], [employer] 10/12/2023 11:56:51 4 text/html ROS as noted in the HPI Pt is here today for a routine follow up Anxiety- on escitalopram last month and has been helping.No longer takes Buspirone- ineffectiveBlood pressure today is highSleeps fine Hyperlipidemia- on meds, labs dueMeds- Simvastatin 20mg daily, [place] 3 ED- On meds, helpMeds- Tadalafil 20mg daily as needed HTN- better but still high Eliu Gee MD [address], [address], [place], [address], [employer] 01/01/2024 12:43:16 4 text/html Patient is a [...] Gee MD [address], [place], [address], [employer] 01/28/2024 16:32:36 4 text/html ROS as noted in the HPI Pt is here today for a routine follow upPT IS NOT FASTING Never did the labs that were ordered back in Nov or the Colonoscopy Anxiety- on escitalopram and has been helping.No longer takes Buspirone- ineffectiveBlood pressure today is highSleeps fine Hyperlipidemia- on meds, labs due, discussed againMeds- Simvastatin 20mg daily, [place] 3 ED- On meds, helpMeds- Tadalafil 20mg daily as needed HTN- B/p today is high, 172/92. Pt had all his lower teeth pulled 1 week ago and has not had any pain med, Has taken all ABX Eliu Gee MD [address], [place], [address], [employer] 04/30/2024 12:18:10
[2025-08-12] MEDS: LACTATED RINGERS 1,000 ML 30 ML IV CONT ×3 (07:30→15:25)
--- NOTE | 2025-08-12 08:17 | WPDHPUPDATE1 ---
History and Physical Update Update Date/Time: 08/12/25 08:17 History and Physical has been reviewed, including an updated exam of the patient. There are NO changes in the patient's condition. Risks, benefits, and alternatives have been discussed and questions answered. Patient agrees to proceed with procedure.
--- NOTE | 2025-08-12 08:41 | WPDANESEPPF ---
Anes - Initial Pre Proc Eval Procedure: Operation Date: 08/12/25 08:30 Proposed Procedures p Stereotactic Computer Assisted 7-D L4-5, L5-S1 Transforaminal Lumbar Interbody Fusion - Park Vanessa MD Date/Time: 08/12/25 08:41 Surgeon: Park Vanessa MD Pre Op Diagnosis: lumbar spondylolisthesis, lumbar radiculopathy Patient Data Age: 59 Gender: M Height: 1.78 m Weight: 83.75 kg Last Vital Signs Temp 97.3 F L 08/12/25 08:18 Pulse 90 08/12/25 08:18 Resp 18 07/31/25 10:50 BP 176/92 H 08/12/25 08:18 Pulse Ox 99 08/12/25 08:18 O2 Del Method Room Air 08/12/25 08:18 Allergies Allergy/AdvReac Type Severity Reaction Status Date / Time poison kylah extract Allergy Intermediate Rash Verified 08/12/25 08:17 lisinopril AdvReac Intermediate Nausea and Verified 08/12/25 08:17 Vomiting Home Medications ?Medication ?Instructions ?Recorded ?Confirmed ?Type meqstthc-yl-alecj 300 mcg-K 60 1 tablet PO DAILY 08/13/24 07/31/25 History mcg-lycop 600 mcg-lutein 300 mcg tablet (Centrum Silver Ultra Men's) omega 4-adj-vdn-fish oil 60 mg-90 1 cap PO DAILY 08/13/24 07/31/25 History mg-500 mg capsule escitalopram oxalate 10 mg tablet See Rx Instructions .Route 06/10/25 08/12/25 Rx .COMPLEX #90 tabs amlodipine 10 mg tablet 10 mg PO DAILY #90 tabs 06/12/25 08/12/25 Rx tadalafil 20 mg tablet 20 mg PO DAILY PRN sexual activity 06/30/25 07/31/25 Rx #20 tabs ibuprofen 200 mg tablet (Advil) 400 mg PO Q6H PRN pain 07/31/25 07/31/25 History Patient hx anesthesia problems: none Family hx anesthesia problems: none Results Review: All pre-operative results and documents have been reviewed as part of the pre-operative evaluation. [facility] Past Medical History Medical History Hypertension Arthritis Family History Family History Other Anxiety Maternal alcohol abuse Social History Social History Smoking packs per day: 0.5 Smoking cigarettes per day: 10.0 Years smoked: 40 Smoking pack-years: 20.00 Smoking status: Former smoker Tobacco type: cigarettes Smoking end date: 11/12/17 Alcohol intake: current Drinks per week: 12 Alcohol use details: beer occasional Substance use: current Substance use type: marijuana Other substance usage details: occasional Last use: 07/31/25 Do You Feel Safe in your Home?: Yes Lack of Transportation: No Lack of Food: Never True Current Housing: I Have Housing Concerned About Future Housing: No Difficulty Paying Gas/Electric Bills: No Difficulty Paying for Meds: No Currently Unemployed: No Education: Associate Degree Difficulty w/ Childcare or Family Care: No Living arrangements: alone Spiritual care concerns: No Anes - Eval Final PreProcedure Day of Procedure 08/12/25 08:41 Patient weight: normal Heart: regular rate and rhythm Lungs: clear to auscultation Airway: Mallampati scale class II Neurological: alert and oriented Last oral intake: >/= 8 hours ASA classification: III Emergent: no Anesthetic plan: proceed Anesthesia type and monitoring: general ETT and standard monitoring Results Review: All pre-operative results and documents have been reviewed as part of the pre-operative evaluation. Informed Consent: The patient's anesthetic plan and its attendant risks and benefits were discussed with the patient/family/POA. Questions were solicited and answers provided to the satisfaction of the patient/family/POA.
[2025-08-12] MEDS: ceFAZolin 2 GM in SODIUM CHLORIDE 0.9% IV 50 ML 100 ML IVPB ×2 (08:51→21:08)
[2025-08-12] MEDS: BUPIVACAINE/EPINEPHRINE 0.5% 50 ML VIAL 30 ML INFILTRATE (09:56)
--- NOTE | 2025-08-12 14:52 | W.PM.PROC2 ---
Procedure Note - Detailed Date of Procedure 08/12/25 Pre-op Diagnosis lumbar spondylolisthesis, lumbar radiculopathy Post-op Diagnosis Same Procedure Performed 1. L4 and L5 left Alvarez hemilaminectomies 2. L4, L5, and S1 pedicle screw instrumentation 3. L4-5, L5-S1 posterolateral arthrodesis with autograft 4. Interbody cage placement at L5-S1 5. Use of 7D Flash navigation 6. Use of C-arm for fluoroscopy Surgeon Park Vanessa MD Graphics Software Engineer Jay Anesthesia General Description of Procedure The patient was brought to the operating room, and general anesthesia was induced. The patient was placed prone on the open Venkat table, and all pressure points were padded. Compression devices were placed on the patient's calves. The C-arm was brought onto the field to localize the appropriate level and assist with incisional planning. The previous incision was marked and extended cephalad. The area was prepped and draped in usual sterile fashion. A time out was conducted, and pre-operative antibiotics were administered. Local anesthesia was injected into the planned incision. The planned incision was made with a 10-blade scalpel, and dissection was carried down with the monopolar cautery to open the fascia. The spinous processes were exposed, and a subperiosteal dissection was performed with the Bovie out transverse processes bilaterally, taking care not to disrupt the facets. The exposure was challenging as the facet joints has overgrown so significantly, which made identifying the normal anatomy difficult. 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 The navigational clamp was placed on the spinous process of L5, and the patient's preoperative CT scan was registered based on intraoperative anatomy. The navigation was tested for accuracy. The C-arm was brought in to confirm accuracy of the levels. Starting on the left side, a aerial applicator pilot hole was created with assistance from navigation at L4 the junction of the transverse process with the superior articular process. The navigated drill guide was used to create the trajectory through the pedicle, and this was tapped. The trajectory was palpated the ball-tipped probe to ensure no breaches in the bone. A 6.5 x 50 mm screw was placed at this level. This process was repeated on the left at L5 and S1, with a 6.5 x 50 mm screw being placed. We repeated the same process on the right at L4, L5 and S1 to place the pedicle screws. At all levels, 6.5 x 50mm screws were placed. The navigational clamp was removed, and then we proceeded with the decompression portion of procedure. The high-speed drill was used to create a trough through the lamina and pars on the left side at L4 and L5. The spinous process and lamina were removed with the Leksell until the ligamentum flavum was exposed. A curved curette was used to separate the ligamentum from the overall which was then removed with a Kerrison. The pars and the superior articular process of L4 and L5 were removed on the left side. At the L5-S1 level, the L5 nerve root was identified followed out through the foramen to ensure it was completely decompressed. All bone was saved and morselized for autograft. We then moved up to the L4-5 level. The decompression was particularly difficult at this level due to the significant bony overgrowth. The bone was periodically thinned with the Leksell, high-speed drill, and kerrisons until the ligamentum flavum was identified. During the decompression, two durotomies were created from one bite with the kerrison. One durotomy was near the midline dorsally which was able to be repaired primarily with a 4-0 neurolon. A second durotomy laterally on the left side was noted. I spent quite a bit of time exploring this to attempt primary closure; however, I was not able to develop a plane between the dura and the adjacent bone. In fact, there was an area of what appeared to be calcified ligamentum flavum or an osteophyte which was adherent to the dura. I attempted primary partial closure with 4-0 neurolon. This area was covered with a cottonoid milagros to protect it throughout the remainder of the case. Because of the inability to separate the dura from the ventral structures, I elected not to place the cage at the L4-5 level. We proceeded with interbody placement at L5-S1. The dura was retracted medially. A 15-blade scalpel was used to incise the disc space. Kike of increasing sizes were used to remove the disc at L5-S1 up to a 9mm size. The disc was removed with a pituitary. Currettes of various forms were used to prepare the endplates and remove residual disc. Morselized autograft was packed into the disc space. A 9x26mm cage was packed with morselized autograft and placed into the disc space. C-arm was used to verify the placement of the cage.The transverse processes were decorticated. The screw heads were turned. 50mm rods were placed bilaterally and secured with set screws which were final tightened. The C-arm was brought back in to obtain confirmatory x-rays which show adequate hardware placement. Hemostasis was ensured with the bipolar, Floseal, and cottonoid patties, and the area was copiously irrigated. The morselized autograft was placed laterally along the decorticated bony edges. A medium Hemovac drain was placed into the surgical cavity and tunneled inferiorly into the left. The muscle was loosely approximated with 0-Vicryl. The fascia was closed with 0-Vicryl in an interrupted fashion. The soft tissue was again copiously irrigated. The dermis was closed with 2-0 and 3-0 interrupted Vicryl. The skin was closed with subcuticular 4-0 monocryl. Exofin skin glue was placed. The patient was returned supine on the stretcher, extubated, and transferred to PACU without incident. Billing code: 31609, [id number], [id number], [id number], [id number], [id number] Estimated Blood Loss 300 Drains No Packing No Pathology None sent Complications Other complications (CSF leak) Condition Stable Disposition PACU [facility] Billing Surgery - Charge Forward: Surgery Billing
[2025-08-12] MEDS: fentaNYL CITRATE INJ (*CRX) 100 MCG/2 ML VIAL 25 MCG IV PUSH ×4 (15:15→16:19)
[2025-08-12] MEDS: diazePAM INJ (*CRX) 10 MG/2 ML SYRINGE 5 MG IV PUSH (15:23)
--- NOTE | 2025-08-12 16:50 | ADMGEN ---
This patient, Kervin Abreu, was admitted to Medical Room 243-01. Patient/family oriented to hospital policies and general routines including ID bracelet, bed and alarms, visiting hours, pain management, procedures, bathroom and other care routines, personal items, smoking policy, room service/diet, and visiting hours. Information on how to activate the Rapid Response Team has been discussed. Patient/Family are encouraged to report perceived risks to care and to ask questions if they do not understand what they are told or what they should do.
[2025-08-12] MEDS: SODIUM CHLORIDE 0.9% IV 1,000 ML 100 ML IV CONT (17:16)
[2025-08-12] MEDS: ACETAMINOPHEN 500 MG TABLET 1000 MG PO ×2 (17:17→21:10)
[2025-08-12] MEDS: CYCLOBENZAPRINE HCL 10 MG TABLET PO (17:17)
[2025-08-12] MEDS: oxyCODONE HCL (*CRX) 5 MG TAB IR 10 MG PO ×2 (17:17→21:09)
[2025-08-12] MEDS: DOCUSATE SODIUM 100 MG CAPSULE PO (21:09)
[2025-08-13] MEDS: CYCLOBENZAPRINE HCL 10 MG TABLET PO ×2 (01:26→09:55)
[2025-08-13] MEDS: oxyCODONE HCL (*CRX) 5 MG TAB IR 10 MG PO ×5 (01:26→22:19)
[2025-08-13] MEDS: MORPHINE SULFATE (*CRX) 4 MG/ML INJ 2 MG IV PUSH ×3 (03:24→11:53)
[2025-08-13 03:39] VITALS: BP 175/88; PULSE 86; RESP 18; TEMP 37.1; O2SAT 98
--- NOTE | 2025-08-13 04:36 | PC.NURSE ---
DR CANO NOTED PT C/O PANIC ATTACK. STATES HAVING TERRIBLE PAIN, ORDERS RECEIVED
[2025-08-13] MEDS: diazePAM INJ (*CRX) 10 MG/2 ML SYRINGE 5 MG IV PUSH (04:40)
[2025-08-13] MEDS: SODIUM CHLORIDE 0.9% IV 1,000 ML 30 ML IV CONT (04:59)
[2025-08-13] MEDS: ACETAMINOPHEN 500 MG TABLET 1000 MG PO ×4 (05:00→22:20)
[2025-08-13 07:46] VITALS: BP 188/96; PULSE 90; RESP 18; TEMP 36.8; O2SAT 99
[2025-08-13] MEDS: DOCUSATE SODIUM 100 MG CAPSULE PO ×2 (09:55→20:08)
[2025-08-13] MEDS: ESCITALOPRAM OXALATE 10 MG TABLET BY MOUTH (09:56)
[2025-08-13] MEDS: ceFAZolin 2 GM in SODIUM CHLORIDE 0.9% IV 50 ML 100 ML IVPB (09:56)
[2025-08-13 11:46] VITALS: BP 184/106; PULSE 91; RESP 18; TEMP 37.1; O2SAT 95
[2025-08-13 15:46] VITALS: BP 163/98; PULSE 95; RESP 18; TEMP 36.4; O2SAT 97
--- NOTE | 2025-08-13 16:33 | WPDNEUROSGPN ---
Progress Note: A&P Assessment and Plan (1) Status post lumbar spinal arthrodesis: Code(s): Z98.1 - Arthrodesis status Status: Acute Plan Mr. Abreu is a 59-year-old male who underwent L4-S1 decompression and fusion on August 12 which was complicated by an intraoperative CSF leak. I was only able to partially repaired this primarily. I would like to keep him on flat bed rest until August 14 around mid day. He may lay on his sides or on his stomach and may bend his knees as long as his back and head remain flat. He may sit up to 30? for meals only. Early afternoon tomorrow, we can start slowly sitting him up. I would plan to start mobilizing him on Sunday morning at which time he could start working with physical therapy. I would like the Mreritt catheter to be removed tomorrow afternoon. I will start him on DVT prophylaxis tomorrow. I will also add scheduled methocarbamol as well as dexamethasone to see if this can help with pain control in the meantime. I discussed with him this CSF leak during surgery as well as symptoms for which we will monitor going forward. I notified him that my partners will be seeing him on my behalf over the next several days. Subjective Date/time seen: 08/13/25 16:33 Interval history: He is having pretty significant pain issues in the back in particular, with pain in a non-dermatomal fashion in both legs. He denies any numbness or new weakness of the legs. He has some headache. No incisional drainage. Review of Systems Review of Systems: All systems reviewed & are unremarkable except as noted in HPI and below Exam Narrative: AOx4 Incision c/d/i with dermabond in place Full strength in legs Sensation intact to light touch Objective Data Vital Signs Vital Signs: Vital Signs - 24 hr 08/12/25 16:50 08/12/25 17:01 08/12/25 17:05 Temperature 98.7 F 98.7 F Pulse Rate 89 87 Respiratory Rate 13 16 14 Blood Pressure 176/89 H 160/87 H Pulse Oximetry 100 100 99 Oxygen Delivery Room Air 08/12/25 17:35 08/12/25 18:35 08/12/25 20:32 Temperature 98.7 F 98.7 F 99 F Pulse Rate 86 97 93 Respiratory Rate 15 16 18 Blood Pressure 158/82 H 151/82 H 154/80 H Pulse Oximetry 99 97 96 Oxygen Delivery 08/12/25 23:46 08/13/25 03:39 08/13/25 07:46 Temperature 98.9 F 98.7 F 98.2 F Pulse Rate 95 86 90 Respiratory Rate 18 18 18 Blood Pressure 153/90 H 175/88 H 188/96 H Pulse Oximetry 96 98 99 Oxygen Delivery 08/13/25 11:46 08/13/25 15:46 Temperature 98.7 F 97.6 F Pulse Rate 91 95 Respiratory Rate 18 18 Blood Pressure 184/106 H 163/98 H Pulse Oximetry 95 97 Oxygen Delivery Intake/Output Intake/Output: Intake & Output 08/10/25 08/11/25 08/12/25 08/13/25 23:59 23:59 23:59 23:59 Intake Total 1412 2330 Output Total 1240 2300 Balance 172 30 Meds/Results Medications: Active Medications Generic Name Dose Route Start Last Admin Trade Name Freq PRN Reason Stop Dose Admin Acetaminophen 1,000 mg 08/12/25 16:46 08/13/25 16:02 Acetaminophen 500 Mg Tablet PO 1,000 mg Q6H SOFY Administration Al Hydrox/Mg Hydrox/Simethicone 20 ml 08/12/25 16:46 Mag Hydrox/Al Hydrox/Simeth 30 Ml Udc PO Q4H PRN Indigestion/Heartburn Amlodipine Besylate 10 mg 08/13/25 09:00 08/13/25 09:56 Amlodipine Besylate 10 Mg Tablet PO 10 mg DAILY SOFY Administration Bisacodyl 10 mg 08/12/25 16:46 Bisacodyl 10 Mg Suppository RECTAL DAILY PRN Constipation Dexamethasone Sodium Phosphate 4 mg 08/13/25 18:00 Dexamethasone Sod Phos Inj 4 Mg/Ml Vial IV PUSH Q6HR SOFY Docusate Sodium 100 mg 08/12/25 21:00 08/13/25 09:55 Docusate Sodium 100 Mg Capsule PO 100 mg Q12HR SOFY Administration Enoxaparin Sodium 40 mg 08/14/25 09:00 Enoxaparin 40 Mg/0.4 Ml Syringe SUB-Q DAILY [facility] Escitalopram Oxalate 10 mg 08/13/25 09:00 08/13/25 09:56 Escitalopram Oxalate 10 Mg Tablet BY MOUTH 10 mg DAILY SOFY Administration Famotidine 20 mg 08/13/25 21:00 Famotidine 20 Mg Tablet PO Q12HR SOFY Cefazolin Sodium 2 gm/ Sodium 50 mls @ 100 mls/hr 08/12/25 21:00 08/13/25 10:26 Chloride IVPB 08/13/25 20:59 Infused Q12H SOFY Infusion Sodium Chloride 1,000 mls @ 100 mls/hr 08/12/25 16:46 08/13/25 04:59 Normal Saline Iv IV CONT 30 mls/hr .Q10H SOFY Administration Methocarbamol 1,000 mg 08/13/25 17:00 08/13/25 16:02 Methocarbamol 500 Mg Tablet PO 1,000 mg QID SOFY Administration Morphine Sulfate 2 mg 08/12/25 17:02 08/13/25 11:53 Morphine Sulfate (*Crx) 4 Mg/Ml Inj IV PUSH 2 mg Q2H PRN Administration Breakthrough Pain Ondansetron HCl 4 mg 08/12/25 16:46 Ondansetron Inj 4 Mg/2 Ml Vial IV PUSH Q8H PRN Nausea And Vomiting Oxycodone HCl 10 mg 08/12/25 16:46 08/13/25 16:03 Oxycodone Hcl (*Crx) 5 Mg Tab Ir PO 10 mg Q4H PRN Administration Pain Rated 7-10 Oxycodone HCl 5 mg 08/12/25 16:46 Oxycodone Hcl (*Crx) 5 Mg Tab Ir PO Q4H PRN Pain Rated 4-6 Senna/Docusate Sodium 1 tab 08/12/25 16:46 Senna/Docusate Sodium Tablet PO HS PRN Constipation Radiology Results: ITS Impressions Chest X-Ray 08/12/25 07:33 IMPRESSION: 1. No acute cardiopulmonary findings. Fluoroscopy 08/12/25 15:47 IMPRESSION: 1. Fluoroscopy utilized during instrumented L4-S1 posterior spinal fusion and instrumented L5-S1 anterior spinal fusion. See procedure note for further detail.
[2025-08-13 19:42] VITALS: BP 160/90; PULSE 96; RESP 18; TEMP 36.2; O2SAT 97
[2025-08-13] MEDS: FAMOTIDINE 20 MG TABLET PO (20:07)
[2025-08-14] VITALS: BP 170/100; PULSE 98; RESP 18; TEMP 36.2; O2SAT 97
[2025-08-14] MEDS: ACETAMINOPHEN 500 MG TABLET 1000 MG PO ×4 (05:29→22:42)
[2025-08-14] MEDS: oxyCODONE HCL (*CRX) 5 MG TAB IR 10 MG PO ×4 (05:30→20:38)
[2025-08-14 06:37] VITALS: BP 170/80; PULSE 101; RESP 18; TEMP 36.2; O2SAT 97
--- NOTE | 2025-08-14 09:31 | WPDNEUROSGPN ---
Progress Note: A&P Assessment and Plan (1) Chronic back pain: Code(s): M54.9 - Dorsalgia, unspecified; G89.29 - Other chronic pain Status: Acute Plan Covering physician note for Dr. Vanessa. At this point he should continue to lay flat to minimize risk of CSF leak. He can slowly mobilized to a chair later this afternoon. If he tolerates this well he may ambulate tomorrow. Subjective Date/time seen: 08/14/25 09:31 Interval history: The patient is doing well. He does have some pain in his low back however this is somewhat improved after the use of steroids. Exam Narrative: He is awake alert no acute distress he is lying supine on bed. When he rolls over to his side his incisions clean dry and intact there is no drainage or leakage onto the back or onto the bed. He moves his bilateral lower extremities full strength including iliopsoas quadriceps can not hamstrings plantar flexors dorsiflexors EHL. Objective Data Vital Signs Vital Signs: Vital Signs - 24 hr 08/13/25 11:46 08/13/25 15:46 08/13/25 19:42 Temperature 98.7 F 97.6 F 97.2 F L Pulse Rate 91 95 96 Respiratory Rate 18 18 18 Blood Pressure 184/106 H 163/98 H 160/90 H Pulse Oximetry 95 97 97 08/14/25 00:00 08/14/25 06:37 Temperature 97.1 F L 97.2 F L Pulse Rate 98 101 H Respiratory Rate 18 18 Blood Pressure 170/100 H 170/80 H Pulse Oximetry 97 97 Intake/Output Intake/Output: Intake & Output 08/11/25 08/12/25 08/13/25 08/14/25 23:59 23:59 23:59 23:59 Intake Total 1412 2570 1620 Output Total 1240 6050 2050 Balance 384 -2156 -811 Meds/Results Medications: Active Medications Generic Name Dose Route Start Last Admin Trade Name Freq PRN Reason Stop Dose Admin Acetaminophen 1,000 mg 08/12/25 16:46 08/14/25 05:29 Acetaminophen 500 Mg Tablet PO 1,000 mg Q6H SOFY Administration Al Hydrox/Mg Hydrox/Simethicone 20 ml 08/12/25 16:46 Mag Hydrox/Al Hydrox/Simeth 30 Ml Udc PO Q4H PRN Indigestion/Heartburn Amlodipine Besylate 10 mg 08/13/25 09:00 08/13/25 09:56 Amlodipine Besylate 10 Mg Tablet PO 10 mg DAILY [facility] Administration Bisacodyl 10 mg 08/12/25 16:46 Bisacodyl 10 Mg Suppository RECTAL DAILY PRN Constipation Dexamethasone Sodium Phosphate 4 mg 08/13/25 18:00 08/14/25 05:33 Dexamethasone Sod Phos Inj 4 Mg/Ml Vial IV PUSH 4 mg Q6HR SOFY Administration Diazepam 5 mg 08/13/25 16:41 Diazepam Inj (*Crx) 10 Mg/2 Ml Syringe IV PUSH Q6H PRN Muscle Spasm Docusate Sodium 100 mg 08/12/25 21:00 08/13/25 20:08 Docusate Sodium 100 Mg Capsule PO 100 mg Q12HR [facility] Administration Enoxaparin Sodium 40 mg 08/14/25 09:00 Enoxaparin 40 Mg/0.4 Ml Syringe SUB-Q DAILY [facility] Escitalopram Oxalate 10 mg 08/13/25 09:00 08/13/25 09:56 Escitalopram Oxalate 10 Mg Tablet BY MOUTH 10 mg DAILY [facility] Administration Famotidine 20 mg 08/13/25 21:00 08/13/25 20:07 Famotidine 20 Mg Tablet PO 20 mg Q12HR [facility] Administration Sodium Chloride 1,000 mls @ 100 mls/hr 08/12/25 16:46 08/14/25 00:07 Normal Saline Iv IV CONT Not Given .Q10H [facility] Methocarbamol 1,000 mg 08/13/25 17:00 08/13/25 20:08 Methocarbamol 500 Mg Tablet PO 1,000 mg QID SOFY Administration Morphine Sulfate 2 mg 08/12/25 17:02 08/13/25 11:53 Morphine Sulfate (*Crx) 4 Mg/Ml Inj IV PUSH 2 mg Q2H PRN Administration Breakthrough Pain Ondansetron HCl 4 mg 08/12/25 16:46 Ondansetron Inj 4 Mg/2 Ml Vial IV PUSH Q8H PRN Nausea And Vomiting Oxycodone HCl 10 mg 08/12/25 16:46 08/14/25 05:30 Oxycodone Hcl (*Crx) 5 Mg Tab Ir PO 10 mg Q4H PRN Administration Pain Rated 7-10 Oxycodone HCl 5 mg 08/12/25 16:46 Oxycodone Hcl (*Crx) 5 Mg Tab Ir PO Q4H PRN Pain Rated 4-6 Senna/Docusate Sodium 1 tab 08/12/25 16:46 Senna/Docusate Sodium Tablet PO HS PRN Constipation Radiology Results: ITS Impressions Chest X-Ray 08/12/25 07:33 IMPRESSION: 1. No acute cardiopulmonary findings. Fluoroscopy 08/12/25 15:47 IMPRESSION: 1. Fluoroscopy utilized during instrumented L4-S1 posterior spinal fusion and instrumented L5-S1 anterior spinal fusion. See procedure note for further detail.
[2025-08-14] MEDS: ESCITALOPRAM OXALATE 10 MG TABLET BY MOUTH (09:44)
[2025-08-14] MEDS: DOCUSATE SODIUM 100 MG CAPSULE PO ×2 (09:44→20:33)
[2025-08-14] MEDS: FAMOTIDINE 20 MG TABLET PO ×2 (09:44→20:34)
[2025-08-14] MEDS: ENOXAPARIN 40 MG/0.4 ML SYRINGE SUB-Q (09:48)
[2025-08-14 14:00] VITALS: BP 130/90; PULSE 107; RESP 18; TEMP 36.8; O2SAT 97
[2025-08-14 20:00] VITALS: PULSE 92; RESP 20; O2SAT 98
[2025-08-14 20:01] VITALS: BP 126/80; PULSE 92; RESP 20; TEMP 36.5; O2SAT 98
[2025-08-15 03:47] VITALS: BP 154/96; PULSE 98; RESP 20; TEMP 36.6; O2SAT 96
[2025-08-15] MEDS: ACETAMINOPHEN 500 MG TABLET 1000 MG PO ×4 (04:40→21:15)
[2025-08-15] MEDS: oxyCODONE HCL (*CRX) 5 MG TAB IR 10 MG PO ×4 (04:43→21:15)
--- NOTE | 2025-08-15 08:00 | P.PNNEUSUR_ITS ---
Progress Note: A&P Assessment and Plan (1) Spondylolisthesis, lumbar region: Code(s): M43.16 - Spondylolisthesis, lumbar region Status: Acute Assessment and Plan: Patient is improving post lumbar decompression and fusion c/b CSF leak repaired primarily. Tolerating being up after bedrest x 2 days Plan for continued mobilization today Work with PT & OT Ensure adequate pain control Anticipate most likely d/c in am on 08/16 Discussed plan with patient who is agreeable presuming tolerating today's activity Discussed relative importance of still being down more than up when at home given known history of CSF leak at surgery. Time Spent With Patient Time with patient: less than 15 minutes Subjective Date/time seen: 08/15/25 08:00 Interval history: patient began to mobillize yesterday afternoon. No headache. Tolerating being up. Improved back pain control. Voiding post gill removal Exam Narrative: Awake, alert oriented x 3 Speech CF THOMPSON EOMI Face= TML MAEW with good strength Incision CDI No swelling or drainage Objective Data Vital Signs Vital Signs: Vital Signs - 24 hr 08/14/25 14:00 08/14/25 20:00 08/14/25 20:01 Temperature 36.8 C 36.5 C Pulse Rate 107 H 92 92 Respiratory Rate 18 20 20 Blood Pressure 130/90 126/80 Pulse Oximetry 97 98 98 Oxygen Delivery Room Air 08/15/25 03:47 Temperature 36.6 C Pulse Rate 98 Respiratory Rate 20 Blood Pressure 154/96 H Pulse Oximetry 96 Oxygen Delivery Intake/Output Intake/Output: Intake & Output 08/12/25 08/13/25 08/14/25 08/15/25 23:59 23:59 23:59 23:59 Intake Total 1412 2570 2220 590 Output Total 1240 7550 4200 Balance 678 -[phone] -4728 590 Meds/Results Medications: Active Medications Generic Name Dose Route Start Last Admin Trade Name Freq PRN Reason Stop Dose Admin Acetaminophen 1,000 mg 08/12/25 16:46 08/15/25 04:40 Acetaminophen 500 Mg Tablet PO 1,000 mg Q6H SOFY Administration Al Hydrox/Mg Hydrox/Simethicone 20 ml 08/12/25 16:46 Mag Hydrox/Al Hydrox/Simeth 30 Ml Udc PO Q4H PRN Indigestion/Heartburn Amlodipine Besylate 10 mg 08/13/25 09:00 08/14/25 09:44 Amlodipine Besylate 10 Mg Tablet PO 10 mg DAILY SOFY Administration Bisacodyl 10 mg 08/12/25 16:46 Bisacodyl 10 Mg Suppository RECTAL DAILY PRN Constipation Dexamethasone Sodium Phosphate 4 mg 08/13/25 18:00 08/15/25 06:08 Dexamethasone Sod Phos Inj 4 Mg/Ml Vial IV PUSH 08/15/25 12:00 4 mg Q6HR SOFY Administration Diazepam 5 mg 08/13/25 16:41 Diazepam Inj (*Crx) 10 Mg/2 Ml Syringe IV PUSH Q6H PRN Muscle Spasm Docusate Sodium 100 mg 08/12/25 21:00 08/14/25 20:33 Docusate Sodium 100 Mg Capsule PO 100 mg Q12HR [facility] Administration Enoxaparin Sodium 40 mg 08/14/25 09:00 08/14/25 09:48 Enoxaparin 40 Mg/0.4 Ml Syringe SUB-Q 40 mg DAILY [facility] Administration Escitalopram Oxalate 10 mg 08/13/25 09:00 08/14/25 09:44 Escitalopram Oxalate 10 Mg Tablet BY MOUTH 10 mg DAILY [facility] Administration Famotidine 20 mg 08/13/25 21:00 08/14/25 20:34 Famotidine 20 Mg Tablet PO 20 mg Q12HR [facility] Administration Methocarbamol 1,000 mg 08/13/25 17:00 08/14/25 20:34 Methocarbamol 500 Mg Tablet PO 1,000 mg QID [facility] Administration Morphine Sulfate 2 mg 08/12/25 17:02 08/13/25 11:53 Morphine Sulfate (*Crx) 4 Mg/Ml Inj IV PUSH 2 mg Q2H PRN Administration Breakthrough Pain Ondansetron HCl 4 mg 08/12/25 16:46 Ondansetron Inj 4 Mg/2 Ml Vial IV PUSH Q8H PRN Nausea And Vomiting Oxycodone HCl 10 mg 08/12/25 16:46 08/15/25 04:43 Oxycodone Hcl (*Crx) 5 Mg Tab Ir PO 10 mg Q4H PRN Administration Pain Rated 7-10 Oxycodone HCl 5 mg 08/12/25 16:46 Oxycodone Hcl (*Crx) 5 Mg Tab Ir PO Q4H PRN Pain Rated 4-6 Senna/Docusate Sodium 1 tab 10/01/25 16:46 Senna/Docusate Sodium Tablet PO HS PRN Constipation Radiology Results: ITS Impressions Chest X-Ray 08/12/25 07:33 IMPRESSION: 1. No acute cardiopulmonary findings. Fluoroscopy 08/12/25 15:47 IMPRESSION: 1. Fluoroscopy utilized during instrumented L4-S1 posterior spinal fusion and instrumented L5-S1 anterior spinal fusion. See procedure note for further detail.
[2025-08-15] MEDS: ESCITALOPRAM OXALATE 10 MG TABLET BY MOUTH (08:42)
[2025-08-15] MEDS: FAMOTIDINE 20 MG TABLET PO ×2 (08:42→21:16)
[2025-08-15] MEDS: DOCUSATE SODIUM 100 MG CAPSULE PO ×2 (08:42→21:15)
[2025-08-15] MEDS: ENOXAPARIN 40 MG/0.4 ML SYRINGE SUB-Q (08:42)
[2025-08-15 15:24] VITALS: BP 129/83; PULSE 104; RESP 20; TEMP 36.3; O2SAT 98
[2025-08-15 20:00] VITALS: PULSE 104; RESP 20; O2SAT 98
[2025-08-16] MEDS: oxyCODONE HCL (*CRX) 5 MG TAB IR PO (06:27)
[2025-08-16] MEDS: ACETAMINOPHEN 500 MG TABLET 1000 MG PO ×2 (06:35→10:46)
[2025-08-16 06:39] VITALS: BP 174/99; PULSE 101; RESP 18; TEMP 36.5; O2SAT 98
[2025-08-16] MEDS: ESCITALOPRAM OXALATE 10 MG TABLET BY MOUTH (08:44)
[2025-08-16] MEDS: FAMOTIDINE 20 MG TABLET PO (08:44)
[2025-08-16 09:15] VITALS: PULSE 101; RESP 18; O2SAT 98
[2025-08-16 13:26] VITALS: BP 140/79
--- NOTE | 2025-08-18 10:19 | PC.NURSE ---
Pt asked me during discharge follow-up phone call when he could shower. I provided the answer to him based on discharge instructions in his chart.
--- NOTE | 2025-08-19 12:59 | P.DS_ITS ---
DS: Admitting Diagnosis Discharge Date 08/16/25 Admitting Diagnosis Lumbar radiculopathy, lumbar spondylolisthesis DS: Discharge Diagnosis Discharge Diagnosis (1) Spondylolisthesis, lumbar region: Code(s): M43.16 - Spondylolisthesis, lumbar region Status: Acute (2) Status post lumbar spinal arthrodesis: Code(s): Z98.1 - Arthrodesis status Status: Acute (3) Lumbar radiculopathy: Code(s): M54.16 - Radiculopathy, lumbar region Status: Acute DS: Summary Hospital Course Hospital Course: Mr. Abreu is a 59-year-old male with history of back and left leg pain who presented on August 12 for surgery; please see the op note for more details. He was transferred to the floor on flat bedrest after surgery. He remained on bedrest for 48 hours. On the afternoon of POD2, we started to slowly start sitting him up and got him up to a chair. DVT prophylaxis was started on POD2. He mobilized with therapy on POD3. He was voiding independently and tolerating oral intake. He was doing well with reasonable pain control and without positional headaches or incisional drainage. He was determined ready for discharge home on POD4. Time Spent with Patient Time attestation: Total time spent providing and/or coordinating discharge services: Discharge Plan Discharge Consulting providers: Niranjan Tomlin; Gualberto Benavidez; Park Gautam; Kervin Ceron; Mu Yeboah Discharging Clinician: Park Vanessa Patient Disposition: Home Activity: other - see discharge instructions Diet: as tolerated Wound Care Instructions: follow printed instructions Discharge Instructions: INSTRUCTIONS AFTER YOUR LUMBAR FUSION ? Your incision is covered with skin glue. This will peel off on its own in about 2 weeks ? You may shower and get your incision wet with soap and water starting on post- operative day 2 (Sunday). Do not submerge the incision under water (like in a bathtub or swimming pool) for 6 weeks after surgery. Never apply ointments or lotions to the incision. ? The incision should be checked daily. Notify the office if there is drainage, redness, or if you have fever with a temperature of over 101 degrees. ? You are encouraged to walk as much as comfortable, with assistance as needed. For example, it may be beneficial to walk short distances hourly during the waking hours and gradually increase walking during your recovery period. Fatigue can be common. ? Avoid any bending, heavy lifting, or twisting movements. ? You have an [id number]-pound lift restriction until further advised by your physician (a gallon of milk weighs eight pounds). ? Make frequent position changes, avoiding long periods of sitting. Try not to sit more than 60 minutes at a time. ? You may engage in sexual activity in two weeks as tolerated. ? No housework, especially vacuuming, making beds, or doing laundry until seen in the office. ? You may walk stairs carefully. ? Minimize long car rides for the first two weeks. You may resume driving when you feel comfortable; however, you may not drive if still taking narcotic pain medications. ? You should start with Tylenol 1000mg every 6 hours for pain first. If the Tylenol is not effective, you may then take oxycodone. ? The physician may order pain medication and/or muscle relaxers. As time goes by, you should require less of these. Always take your medication as ordered, and only if needed. If you take more than prescribed, it will not be refilled early. If you feel you require narcotic medication refill, kindly give the office a 72-hour notice. No refills are given over the weekend. ? Avoid use of anti-inflammatory medications (like Ibuprofen, Aleve, Advil, Motr in) for up to three months following fusion surgery. Use of these medications may slow healing. ? Resume your usual diet. Constipation is a common problem postop. You may use any over the counter laxative, or stool softener. Always follow the bottle directions. ? Use of nicotine products should be stopped completely. Smoking can slow the healing process significantly. It can also increase the chance for developing postop pneumonias and other complications. Please avoid use of all nicotine products for at least three months after spine surgery. FOLLOW-UP ? You should have an appointment already with Dr. Vanessa in clinic in about 2 weeks. Please call the office if you need to verify or reschedule your appointment. ? Schedule an appointment with your primary care physician in the near future to ensure he/she is aware of your recent hospitalization and surgery and to ensure your other medical issues are being properly managed. This is particularly important to ensure your blood sugars are being well-controlled while you are healing from surgery. For urgent calls after hours, please call our exchange through our office at : ? Call the office for: o Appointment set up. o Fever greater than 101 degrees. o Increased pain, swelling, redness or drainage from your incision. o Trouble swallowing or breathing. o Pain, swelling or weakness of your legs. o Any other question or concerns you may have. Park Vanessa MD Neurosurgery [place] [address] [address], [place] [address] Patient Language: Russian Stand Alone Forms: General Discharge Information Follow-up/Referrals: Park Vanessa MD [Physician, Neurosurgery] Discharge Medications: New methocarbamol 500 mg Tablet 1,000 mg PO QID PRN (Reason: muscle spasm) 10 Days Qty: 40 0RF sennosides-docusate sodium [Senokot-S] 8.6-50 mg Tablet 1 tab PO BID 7 Days Qty: 14 0RF oxycodone 5 mg Tablet 5 - 10 mg PO Q4H PRN (Reason: Pain Rated 4-6) 7 Days Qty: 56 0RF Continued Centrum Silver Ultra Men's [id number] mcg tablet 1 tablet PO DAILY omega 0-fdd-byg-fish oil 60-90-500 mg capsule 1 cap PO DAILY tadalafil 20 mg tablet 20 mg PO DAILY PRN (Reason: sexual activity) Qty: 20 2RF Rx Instructions: administer approximately 30min before sexual activity; do not use more than 1 dose per 24hrs escitalopram oxalate 10 mg tablet See Rx Instructions .ROUTE .COMPLEX Qty: 90 0RF Dose Instruction: Take 1 tablet by mouth once daily Rx Instructions: Take 1 tablet by mouth once daily amlodipine 10 mg tablet 10 mg PO DAILY Qty: 90 2RF No Action famotidine 20 mg tablet 20 mg PO DAILY bisacodyl 10 mg suppository 10 mg RECTAL DAILY PRN docusate sodium 100 mg capsule 100 mg PO DAILY alum-mag hydroxide-simeth [Mylanta Maximum Strength] 400-400-40 mg/5 mL suspension 20 ml PO Q4H PRN tizanidine 4 mg tablet 4 mg PO TID PRN (Reason: muscle spasticity) Qty: 30 0RF Date of admission: 08/12/25 16:46 Primary Care Provider: Derek Allen Admitting Provider: Park Vanessa Attending physician on admission: Park Vanessa Condition: Stable
== END 2025-08-16 14:35 | disposition home or self-care (01) | DRG 427 ==
LOC: ANH2MED 16:47
PROVIDERS: Admitting Provider Neurological Surgery; PCP Emergency Medicine; Visit Provider Neurological Surgery
PROC: 0SG30AJ Fusion of Lumbosacral Joint with Interbody Fusion Device, Posterior Approach, Anterior Column, Open Approach (ICD-10-PCS; CPT 22612; principal; 2025-08-12 08:30)
DX: M43.16 Spondylolisthesis, lumbar region (principal); G96.09 Other spinal cerebrospinal fluid leak; G97.41 Accidental puncture or laceration of dura during a procedure; M54.16 Radiculopathy, lumbar region; I10 Essential (primary) hypertension; M19.90 Unspecified osteoarthritis, unspecified site; Z87.891 Personal history of nicotine dependence; Q76.49 Other congenital malformations of spine, not associated with scoliosis
CPT/HCPCS: 71046; 97161; 97165; 97530; 97535; 99199; J0690; A9270; C1713; J1100; J1171; J1650; J2003; J2250; J2270; J2405; J2704; J3010; J3360; J7030; J7120